=== PATIENT | female | born 1985 | race Caucasian/White ===

== ENCOUNTER 2019-09-03 13:19 | Emergency (ER) | payer OTHER ==
[2019-09-03] MEDS ORDERED: Ibuprofen 200 MG TAB ONE (13:31)
--- NOTE | 2019-09-03 13:58 | RAD ---
Exam:3 views right hand HISTORY: Pain. Bruising to the fifth metacarpal. COMPARISON: None FINDINGS: Preserved joint spaces. No fracture, cortical irregularity or periosteal reaction. IMPRESSION: No fracture.
== END 2019-09-03 14:23 | disposition home or self-care (01) ==
LOC: NAV ERS 13:19
DX: S60.221A Contusion of right hand, initial encounter (principal); E03.9 Hypothyroidism, unspecified; F32.9 Major depressive disorder, single episode, unspecified; F41.9 Anxiety disorder, unspecified; E28.2 Polycystic ovarian syndrome; G47.30 Sleep apnea, unspecified; Z79.899 Other long term (current) drug therapy; W22.8XXA Striking against or struck by other objects, initial encounter
CPT/HCPCS: 29125